=== PATIENT | male | born 1970 | race Hispanic/Latino ===

== ENCOUNTER 2022-11-16 16:42 | Inpatient (IN) | payer BC ==
[2022-11-16] MEDS ORDERED: Ipratropium/Albuterol 3 ML NEB NEB PRN (19:10)
[2022-11-16] MEDS ORDERED: Morphine 2 MG/ML VIAL SLOW IVP PRN ×2 (19:10→19:14)
[2022-11-16] MEDS ORDERED: hydrALAZINE 20 MG/ML VIAL SLOW IVP PRN (19:10)
[2022-11-16] MEDS ORDERED: Ondansetron PF 4 MG/2 ML Vial IVP PRN (19:10)
[2022-11-16] MEDS ORDERED: Morphine 4 MG/ML VIAL SLOW IVP PRN (19:10)
[2022-11-16] MEDS ORDERED: traMADol HCl 50 MG TAB PO PRN (19:14)
[2022-11-16] MEDS ORDERED: Cyclobenzaprine 10 MG TAB PO PRN (19:14)
[2022-11-16] MEDS ORDERED: Sodium Chloride 0.9% 1,000 ML IV SCH (19:15)
[2022-11-16] MEDS ORDERED: Ketorolac Tromethamine 30 MG/ML VIAL IVP SCH (19:15)
[2022-11-16] MEDS: Famotidine 20 MG TAB PO SCH (19:59)
[2022-11-16] MEDS: Losartan 25 MG TAB PO SCH (19:59)
[2022-11-16] MEDS: Gabapentin 300 MG CAP PO SCH (19:59)
[2022-11-16] MEDS: Senokot S 8.6-50 MG TAB PO SCH (19:59)
[2022-11-16] MEDS: Acetaminophen 500 MG TAB PO SCH (20:00)
[2022-11-16] MEDS: Famotidine/PF 20 mg/2ml Vial SLOW IVP SCH (20:00)
[2022-11-16] MEDS: Lactated Ringer's 1,000 ML IV SCH (20:00)
[2022-11-16 20:09] VITALS: BMI 47.7
[2022-11-16] MEDS: Ketorolac Tromethamine 30 MG/ML VIAL IVP SCH (23:18)
[2022-11-16] MEDS: traMADol HCl 50 MG TAB PO SCH (23:19)
[2022-11-17] MEDS: Acetaminophen 500 MG TAB PO SCH ×3 (01:38→13:49)
[2022-11-17] MEDS: Ketorolac Tromethamine 30 MG/ML VIAL IVP SCH (05:22)
[2022-11-17] MEDS: Lactated Ringer's 1,000 ML IV SCH ×2 (05:23→13:19)
[2022-11-17] MEDS: traMADol HCl 50 MG TAB PO SCH ×2 (05:23→13:19)
[2022-11-17 05:39] LABS: #Eosinphils 0.1 thou/uL (0.0-0.7); #Monocytes 0.8 thou/uL (0.11-0.59); #Neutrophils 5.3 thou/uL (1.40-6.50); %Basophils 0.2 % (0.0-1.0); %Eosinophils 1.4 % (0.0-10.0); %Lymphocytes 23.6 % (21.0-51.0); %Monocytes 9.2 % (0.0-10.0); %Neutrophils 65.4 % (42.0-75.0); Hemoglobin 12.5 g/dL (14.0-18.0); Mean Corpuscular HGB CONC 32.3 g/dL (32.0-36.0); Mean Corpuscular Volume 86.8 fl (78.0-98.0); Mean Platelet Volume 9.8 fL (7.4-10.4); Platelet Count 264 10x3/uL (130-400); RBC Distribution Width 14.3 % (11.5-14.5); Red Blood Cell (RBC) Count 4.46 mill/uL (4.70-6.10); White Blood Cell (WBC) Count 8.1 10x3/uL (4.8-10.8)
[2022-11-17 05:58] LABS: INR-International Normal Ratio 1.1; PTT 29.6 sec (22.9-36.1); Prothrombin Time 14.4 sec (12.0-14.7)
[2022-11-17 06:05] LABS: Anion Gap 12 mmol/L (10-20); BUN (Urea Nitrogen) 19 mg/dL (8.9-20.6); Calc. Creatinine Clearance 273 mL/min (70-130); Calcium 8.9 mg/dL (7.8-10.44); Carbon Dioxide 23 mmol/L (22-29); Chloride 106 mmol/L (98-107); Estimated GFR 113; Glucose 100 mg/dL (70-105); Potassium 3.9 mmol/L (3.5-5.1); Sodium 137 mmol/L (136-145)
[2022-11-17] MEDS ORDERED: Multivitamin W/ Minerals 1 TAB PO SCH (09:00)
[2022-11-17] MEDS ORDERED: Ibuprofen 200 MG TAB PO SCH (09:00)
[2022-11-17 09:09] VITALS: TEMP 98.1
[2022-11-17] MEDS: Gabapentin 300 MG CAP PO SCH (10:13)
[2022-11-17] MEDS: Famotidine 20 MG TAB PO SCH (10:14)
[2022-11-17] MEDS: Senokot S 8.6-50 MG TAB PO SCH (10:14)
[2022-11-17] MEDS: Losartan 25 MG TAB PO SCH (10:14)
[2022-11-17 12:07] VITALS: BP 113/71
[2022-11-17] MEDS: Famotidine/PF 20 mg/2ml Vial SLOW IVP SCH (13:15)
== END 2022-11-17 15:10 | disposition home or self-care (01) | DRG 200 ==
LOC: SJJU 18:42
PROVIDERS: ADMIT Surgery; ATTEND Surgery
PROC: 5A09357 Assistance with Respiratory Ventilation, Less than 24 Consecutive Hours, Continuous Positive Airway Pressure (ICD-10-PCS; principal; 2022-11-17)
DX: S27.0XXA Traumatic pneumothorax, initial encounter (principal); S22.42XA Multiple fractures of ribs, left side, initial encounter for closed fracture; I10 Essential (primary) hypertension; J45.909 Unspecified asthma, uncomplicated; H40.9 Unspecified glaucoma; Z79.899 Other long term (current) drug therapy; W11.XXXA Fall on and from ladder, initial encounter; Y92.009 Unspecified place in unspecified non-institutional (private) residence as the place of occurrence of the external cause
CPT/HCPCS: 36415; 71045; 80048; 85025; 85610; 85730; J1885; J2270; J7120